=== PATIENT | female | born 1950 | race Caucasian/White ===

== ENCOUNTER 2016-12-06 09:36 | Inpatient (IN) | payer OTHER, BC ==
--- NOTE | 2016-11-09 15:41 | PAT Medication Instructions ---
Service Date Nov 09, 2016. Current Home Medication List Alprazolam (Xanax), 0.25 MG PO HS Bupropion (Wellbutrin Sr), 150 MG PO QAM Celecoxib (CeleBREX), 200 MG PO QAM Fesoterodine Fumarate (Toviaz), 1 TAB PO QAM Furosemide (Lasix), 20 MG PO QAM Levothyroxine Sodium (Synthroid), 100 MCG PO QAM Metoprolol Succ (Toprol Xl) (Toprol-Xl), 50 MG PO BID Potassium Chloride (Micro-K Ext Rel), 10 MEQ PO QAM Medication Instructions For Your Scheduled Surgery - Check with surgeon for instructions: Celecoxib (CeleBREX), 200 MG PO QAM - Hold the following medications the morning of surgery: Potassium Chloride (Micro-K Ext Rel), 10 MEQ PO QAM Furosemide (Lasix), 20 MG PO QAM Fesoterodine Fumarate (Toviaz), 1 TAB PO QAM - Take the following medications the morning of surgery with a sip of water: Bupropion (Wellbutrin Sr), 150 MG PO QAM Levothyroxine Sodium (Synthroid), 100 MCG PO QAM Metoprolol Succ (Toprol Xl) (Toprol-Xl), 50 MG PO BID - Take the following medications as scheduled the night before surgery: Metoprolol Succ (Toprol Xl) (Toprol-Xl), 50 MG PO BID Alprazolam (Xanax), 0.25 MG PO HS If you have any questions please call us at [phone] or [phone] or [phone]
[2016-11-09 16:35] LABS: BASO % 0.6 %; BASO ABS # 0.05 K/uL (0-0.2); COMPLETE YES; HEMATOCRIT 40.1 % (37-47); IG% 0.5 %; LYMPH % 35.7 %; LYMPH ABS # 2.83 K/uL (1.2-3.4); MEAN CELL VOLUME 87.6 fL (80-100); MEAN CORPUSCULAR HEMOGLOBIN 29.9 pg (25-34); MEAN CORPUSCULAR HGB CONC 34.2 g/dl (32-36); MEAN PLATELET VOLUME 10.7 fL (7.4-10.4); MONO % 6.8 %; NEUT % 54.4 %; PLATELET COUNT 302 K/uL (130-400); RED BLOOD COUNT 4.58 M/uL (4.2-5.4); WHITE BLOOD COUNT 7.92 K/uL (4.8-10.8)
--- NOTE | 2016-11-09 16:40 | DIAGNOSTIC IMAGING REPORT ---
TWO VIEW CHEST CLINICAL HISTORY: Preoperative examination. FINDINGS: PA and lateral chest radiographs are obtained. No prior studies are available for comparison at the time of dictation. The cardiomediastinal silhouette is unremarkable. Nonspecific interstitial thickening is observed. Linear atelectasis versus scarring is present the left lung base. There is no airspace consolidation or pleural effusion. There is no pneumothorax. The skeletal structures are osteopenic. Degenerative change and scoliosis are noted in the thoracic spine. IMPRESSION: No active disease in the chest. Electronically signed by: Stephen Quinones M.D. 11/09/2016 4:39 PM Dictated Date/Time: 11/09/2016 4:38 PM
[2016-11-09 16:42] LABS: MANUAL MICROSCOPIC REQUIRED? NO; REVIEW REQ? NO; URINE APPEARANCE CLEAR (CLEAR); URINE BILIRUBIN NEG (NEG); URINE COLOR YELLOW; URINE NITRITE NEG (NEG); URINE SPECIFIC GRAVITY 1.023 (1.000-1.030); UROBILINOGEN NEG (NEG); ZZUR CULT IF INDIC CLEAN CATCH NO
[2016-11-09 16:46] LABS: BUN/CREATININE RATIO 37.3 (10-20); CALCIUM 9.3 mg/dl (8.5-10.1); CREATININE 0.83 mg/dl (0.60-1.20); POTASSIUM 4.2 mmol/L (3.5-5.1)
[2016-11-09 17:02] LABS: INR 0.9 (0.9-1.1)
[2016-11-10 06:58] LABS: ESTIMATED AVERAGE GLUCOSE 120 mg/dl; HA1C FLAG Normal (Normal)
--- NOTE | 2016-12-05 15:40 | HISTORY & PHYSICAL EXAMINATION ---
DATE OF ADMISSION: 12/06/2016 CHIEF COMPLAINT: Chronic right shoulder pain. HISTORY OF PRESENT ILLNESS: This is a 66-year-old female patient of Dr. Chan, complaining of chronic right shoulder pain, longstanding, now progressively getting worse. The patient has been diagnosed with end-stage osteoarthritis with rotator cuff insufficiency. She wishes to proceed with a right reversed total shoulder arthroplasty. PAST MEDICAL HISTORY: Hypertension, hypercholesterolemia, neuropathy of her feet and hands, hypothyroidism, osteoarthritis, hiatal hernia, and obesity. SOCIAL HISTORY: Nonsmoker and nondrinker. FAMILY HISTORY: Noncontributory. PAST SURGICAL HISTORY: Hip replacement and hysterectomy. MEDICATIONS: Metoprolol 50 mg b.i.d., Wellbutrin 150 mg daily, Lasix 20 mg daily, Synthroid 100 mcg daily, potassium 100 mcg daily, Xanax 0.25 mg at bedtime, Celebrex 200 mg daily, and tovias 8mg daily. ALLERGIES: No known drug allergies. PHYSICAL EXAMINATION: GENERAL: Well-developed and well-nourished 66-year-old female of Dr. Chan, complaining of chronic right shoulder pain, longstanding, now progressively getting worse. HEENT: Normocephalic and atraumatic. Extraocular motions are intact. Pupils are equal and reactive to light. HEART: Regular rate and rhythm. No murmurs are appreciated. LUNGS: Clear. ABDOMEN: Soft and nontender. Bowel sounds are present. EXTREMITIES: Right shoulder reveals external rotation of 3/5 strength and internal rotation 4/5 strength. She has 90 degrees of active range of motion. She has 110 degrees of passive range of motion. She has crepitation with passive range of motion. NEUROLOGIC: Neurovascularly, she is intact in her right upper extremity. DIAGNOSES: Right shoulder end-stage osteoarthritis with a history of hypertension, hypercholesterolemia, neuropathy of her feet and hands, hypothyroidism, osteoarthritis, hiatal hernia, and obesity. PLAN: The patient was advised of her diagnosis. Indications, risks, benefits, and postop course have all been reviewed. The patient wishes to proceed with a right reversed total shoulder arthroplasty. Necessary consent forms, preoperative testing and clearances will be obtained. [facility]
[~2016-12-06] VITALS: Ht 157.5 cm; Wt 72.6 kg
[2016-12-06] VITALS (10 sets, daily range): BP systolic 126–146; BP diastolic 77–86; PULSE 65–77; TEMP 36.5–36.9; O2SAT 92–99; Ht 157.5 cm; Wt 72.6 kg
[~2016-12-06 09:36] MED LIST: ACETAMINOPHEN 500 MG TAB PO SCH; ALPR-411 PO; BUPR-79 PO; CLB/200 PO; CeleBREX 200 MG CAP PO SCH; DEXAMETHASONE 4 MG TAB PO SCH; DULO60CA44 PO; FAMOTIDINE 20 MG TAB PO SCH; FESO8TAB PO; FURO-85 PO; GABAPENTIN 300 MG CAP PO SCH; LACTATED RINGER'S 1000ML 1,000 ML IV SCH; LEVO100T PO; METO50TA7 PO; METOCLOPRAMIDE HCL 10 MG TAB PO SCH; POTA10CA28 PO; ROPIVACAINE 0.5% 5 MG/ML 30 ML VIAL ONE
--- NOTE | 2016-12-06 10:50 | History & Physical Bridge Note ---
H&P Re-Evaluation Bridge Note: I have examined the patient, reviewed the History & Physical and in the interval since the performance of the History & Physical I have noted the following changes of clinical significance: No changes noted
[2016-12-06] MEDS ORDERED: MIDAZOLAM HCL 1 MG/ML 2ML VIAL ONE ×3 (11:06→11:45)
[2016-12-06] MEDS ORDERED: FENTANYL CITRATE INJ 50 MCG/1 ML 2 ML VIAL ONE ×3 (11:07→13:10)
[2016-12-06] MEDS: CEFAZOLIN 1000MG/55 ML D5W 55 ML IV SCH ×2 (11:11→13:09)
[2016-12-06] MEDS ORDERED: DEXAMETHASONE SOD INJ 4 MG/ML VIAL ONE (11:12)
[2016-12-06] MEDS ORDERED: PROPOFOL IV EMULSION 10 MG/ML 20 ML VIAL IV ONE (11:12)
[2016-12-06] MEDS ORDERED: GLYCOPYRROLATE INJ 0.2 MG/ML VIAL ONE (11:12)
[2016-12-06] MEDS ORDERED: ROCURONIUM BROMIDE 10 MG/ML 5 ML VIAL IV ONE (11:12)
[2016-12-06] MEDS ORDERED: ONDANSETRON INJ 2 MG/ML 2 ML VIAL ONE (11:12)
[2016-12-06] MEDS ORDERED: NEOSTIGMINE METHYLSULFATE 5 MG/5 ML SYR ONE (11:12)
[2016-12-06] MEDS ORDERED: LIDOCAINE HCL 2% 2 ML VIAL (20MG/ML) ONE (11:12)
[2016-12-06] MEDS ORDERED: NURSING VERBAL MED ORDER ONE (11:15)
[2016-12-06] MEDS ORDERED: METOPROLOL SUCC 50MG EXT REL TAB PO SCH (11:30)
[2016-12-06] MEDS ORDERED: BACITRACIN 50000 UNIT VIAL ONE (11:55)
[2016-12-06] MEDS ORDERED: SOD PHOSPHATE/SOD BIPHOSPHATE ENEMA 132 ML BTL PR PRN (16:15)
[2016-12-06] MEDS ORDERED: NALOXONE HCL 0.4 MG/1 ML VIAL/CARP IV PRN (16:15)
[2016-12-06] MEDS ORDERED: BISACODYL 10 MG SUPP PR PRN (16:15)
[2016-12-06] MEDS ORDERED: ZOLPIDEM TARTRATE 5 MG TAB PO PRN (16:15)
[2016-12-06] MEDS ORDERED: MAGNESIUM HYDROXIDE SUSP 30 ML UDC PO PRN (16:15)
[2016-12-06] MEDS ORDERED: MoRPHine SULFATE 2 MG/ML CARP IV PRN (16:15)
--- NOTE | 2016-12-06 16:37 | Anesthesiology Progress Note ---
Anesthesia Post Op Note Date & Time Dec 06, 2016 at 16:37 Vital Signs Pain Intensity: 0 Vital Signs Past 12 Hours Date Time Temp Pulse Resp B/P (MAP) Pulse Ox O2 Delivery O2 Flow Rate FiO2 12/06/16 16:25 66 18 143/79 98 Oxymask 5 12/06/16 16:15 69 16 121/81 99 Oxymask 10 12/06/16 16:05 36.6 68 16 149/81 99 Oxymask 10 12/06/16 10:38 36.7 65 20 138/85 12/06/16 10:25 99 Room Air Notes Mental Status: alert / awake / arousable, participated in evaluation Pt Amnestic to Procedure: Yes Nausea / Vomiting: adequately controlled Pain: adequately controlled Airway Patency, RR, SpO2: stable & adequate BP & HR: stable & adequate Hydration State: stable & adequate Anesthetic Complications: no major complications apparent
--- NOTE | 2016-12-06 16:51 | DIAGNOSTIC IMAGING REPORT ---
R SHOULDER MIN 2 VIEWS ROUTINE HISTORY: 66 years-old Female Post shoulder surgery status post right shoulder arthroplasty COMPARISON: Chest radiograph 11/09/2016 TECHNIQUE: 2 views of the right shoulder FINDINGS: Postoperative changes compatible with recent reverse right shoulder arthroplasty are present with surgical drain and skin bee in place. Expected postsurgical swelling and deep tissue air is noted about the right shoulder. The bones are mildly demineralized. Alignment is satisfactory. No retained opaque foreign body identified. Imaged lung muñoz are hypoinflated. Degenerative changes are seen about the right AC joint. IMPRESSION: Status post reverse total joint arthroplasty of the right shoulder without postoperative complication identified. The above report was generated using voice recognition software. It may contain grammatical, syntax or spelling errors. Electronically signed by: Roverto Estevez M.D. 12/06/2016 4:50 PM Dictated Date/Time: 12/06/2016 4:49 PM
[2016-12-06] MEDS ORDERED: MoRPHine SULFATE 4 MG/ML 1 ML CARP\\VIAL IV PRN (17:15)
[2016-12-06] MEDS: D5W AND 1/2NSS + 20MEQ KCL 1,000 ML IV SCH (17:37)
--- NOTE | 2016-12-06 21:10 | OPERATIVE REPORT ---
DATE OF OPERATION: 12/06/2016 INDICATION FOR PROCEDURE: The patient is a 66-year-old female with right shoulder pain and disability. The patient was worked up due to chronic pain and dysfunction of her right shoulder. She has an MRI demonstrating a massive retracted rotator cuff tear which has atrophy of the supraspinatus and infraspinatus and felt to have nonrepairable tissue. She also has some DJD developing in the glenohumeral joint with an inferior humeral osteophyte and degenerative changes, not completely [id number] but signs of rotator cuff arthropathy. Because of the pain, disability and failed conservative management, she presents for reverse shoulder replacement at this time. PREOPERATIVE DIAGNOSIS: Osteoarthritis glenohumeral joint due to rotator cuff arthropathy with chronic nonrepairable rotator cuff tear, right shoulder. POSTOPERATIVE DIAGNOSIS: Same including significant biceps tendinopathy. PROCEDURE: Reverse right total shoulder arthroplasty including biceps tenodesis. SURGEON: Dr. Chan. REHEAT FURNACE OPERATOR: Canelo Ferraro PA-C. ANESTHESIA: Regional block and general. OPERATIVE PROCEDURE: The patient was taken to the operating room, anesthetized with regional block with general anesthetic. She was positioned on operating room table in about 30-degree beach chair position. She had a towel roll placed under medial border of the right scapula. She was translated to right side of the bed so her shoulder could be manipulated off the bed as necessary. She had foam headrest placed, protective eyewear placed. She had SCDs placed. Her right shoulder was examined under anesthesia. She had passive 150 degrees of forward elevation, 110 degrees of abduction, 30 degrees of external rotation only, and crepitation and instability of her shoulder anteriorly with some superior-anterior escape. After the shoulder was sterilely prepped and draped with ChloraPrep, an anterior deltopectoral approach was performed. Skin was incised sharply. Subcutaneous flaps were elevated. The cephalic vein was dissected out and retracted laterally with the deltoid, the pectoralis was retracted medially. The upper centimeter of the pectoralis was released for inferior exposure. Biceps tendon sheath was opened up and there was chronic biceps tenosynovitis coming from the shoulder joint. When the biceps entered the bicipital groove, there was a very stenotic bicipital groove. The biceps tendon was then tenodesed to the pectoralis tendon with a [id number] #2 Fiberwire sutures and the proximal biceps resected. There was thickened, scarred bursa tissue enveloping the entire subscapularis, this was removed. We released this clavipectoral fascia also on the lateral aspect of the conjoined tendon and extended this up to the CA ligament which was left intact. There was some tendinopathic supraspinatus tendon tissue in the rotator interval area but had a chronically torn supraspinatus and infraspinatus tendon and intact teres minor tendon. The thickened bursa superiorly and posteriorly around the rotator cuff was all resected. At this time, the circumflex vessels were identified, tied off with silk ties and divided laterally. The muscle fibers of the subscapularis were split at the level of the circumflex vessels and reflected off the inferior capsule with a Kitner elevator. There was a bit of scar tissue adhering to some of these fibers, we carefully dissected down to identify the axillary nerve which we identified with both tug test followed by direct visualization. Then, we placed the blunt Hohmann retractor between the capsule and the axillary nerve itself to protect it inferiorly. Then, the rotator interval was divided down to the anterior glenoid and then the subscapularis and capsule released off the humerus with electrocautery dissection, doing a subperiosteal dissection, releasing the tissue off the lesser tuberosity and then the neck of the humerus and then inferiorly along the neck and we used a Rosado elevator to release the capsule as well along the neck, so we had a complete release around the inferior neck. I placed a #1 Vicryl traction suture in the subscapularis tendon. Then, I retracted the humerus posterior to the glenoid with a Fukuda retractor. Then, we did the capsular release with Tomlin scissors down to the glenoid. The capsule was released off the anterior labrum and then the rotator was released down to that and the coracohumeral ligament was released. Then, the Bankart retractor was placed anteriorly. The glenoid labrum was resected circumferentially and the remainder of the thickened, widened biceps tendon was resected off the superior glenoid. Some of the damaged supraspinatus tendinopathic tissue was resected. The glenoid had full exposure. Intraarticular findings demonstrated that the anterior-superior glenoid had exposed bone, the remainder of glenoid had articular cartilage intact. The inferior humeral head was exposed bone and there were inferior osteophytes around the humeral head. These were all removed with an artist chisel and a rongeur. Then, I did an anterior-inferior and posterior-inferior capsule release using both electrocautery on bone and a Rosado elevator to release the capsule and triceps. The axillary nerve was protected the entire time with the blunt Hohmann retractor inferiorly. Then, the humerus was exposed with extension and external rotation. The cutting guide for the Tornier reverse total shoulder arthroplasty system using the Ascend Flex humeral components and the Aequalis glenoid components was utilized. The cutting guide for the stem was placed, we set the guide at 20 degrees of retroversion, made our cut, and then went ahead and retracted the humerus posterior to the glenoid and then curetted the articular cartilage off the glenoid so that we could get the true version of the glenoid. Then, I placed a 10-degree inferior tilt on the guide for the 25 mm baseplate. We drilled the central hole, followed by the reamer for the baseplate, followed by widening of central hole, followed by copious irrigation and then impacting in the 25 mm hydroxyapatite-coated glenoid baseplate. It was transfixed with 18 and 26 mm compression screws and 26 and 23 mm locking screws. There was excellent fixation of the patient's hard bone. Then, we went ahead and reamed the fan reamer around for the 36 mm glenoid sphere and irrigated out all the debris and then placed the glenoid sphere in place, impacted in position and tightened the screw tightly, verified the stability of the glenoid sphere, then proceeded to the humeral preparation. The humerus was prepared with the starter awl, followed by broaches up to a 2B long stem and trial reduction with high offset +0 humeral tray and a 36, +6 insert gave a stable range of motion through full range of motion. There was a tight fit with that, we could not go to a larger size. This was removed with the use of a bone hook and then we were able to remove the trials and then went ahead and placed 3 drill holes through the hard bone in the bicipital groove area and then placed 3 transosseous #5 FiberWire sutures. Irrigated out the canal. Then assembled the final component which was the 2B long stem to the +0 high offset humeral baseplate, followed by the 36 x 6 mm polyethylene insert. The Aequalis humeral component was then impacted into the humeral canal with a tight pressfit. Then, we reduced this to the glenoid sphere, then repaired the subscapularis with the #5 FiberWire sutures using Davide-Rhett suture technique. The pectoralis was repaired with [id number] #2 FiberWire. Then, we checked range of motion which was 160 degrees of forward elevation passively, 45 degrees of external rotation and 120 degrees of abduction without any tension on the repair. The wound was copiously irrigated with pulsatile lavage antibiotic solution and bacitracin. Two drains were brought out laterally and placed into the joint, deep to the deltoid pectoralis interval and then the deltopectoral interval was repaired with [id number] #1 Vicryl sutures. The subcutaneous tissue was closed with interrupted 2-0 Vicryl, skin closed with bee. Sterile dressing was applied and a sling immobilizer. The patient tolerated the procedure well. Canelo Ferraro PA-C, was my heel sprayer first and functioned as heel sprayer first through the entire procedure. He assisted in patient positioning, prepping and draping, arm positioning, soft tissue retraction, instrument management during the procedure, and performed the subcutaneous and skin closure, and will participate in the postoperative care of the patient. I attest to the content of the Intraoperative Record and any orders documented therein. Any exception s are noted below.
[2016-12-06] MEDS: OXYCODONE HCL 10 MG TABCR (OXYCONTIN) PO SCH (21:18)
[2016-12-06] MEDS: DOCUSATE SODIUM 100 MG CAP PO SCH (21:19)
[2016-12-06] MEDS: METOPROLOL SUCC 50MG EXT REL TAB PO SCH (21:19)
[2016-12-06] MEDS: ALPRAZOLAM 0.5 MG TAB PO SCH (22:17)
[2016-12-06] MEDS: ACETAMINOPHEN 500 MG TAB PO SCH (22:18)
[2016-12-06] MEDS: CEFAZOLIN IV 1,000 MG in DEXTROSE 5% 50ML 50 ML IV SCH (22:22)
[2016-12-07 03:15] VITALS: BP 102/74; PULSE 87; TEMP 36.6; O2SAT 94
[2016-12-07] MEDS: D5W AND 1/2NSS + 20MEQ KCL 1,000 ML IV SCH ×2 (03:46→12:46)
[2016-12-07] MEDS: LEVOTHYROXINE 100 MCG TAB PO SCH (05:38)
[2016-12-07] MEDS: ACETAMINOPHEN 500 MG TAB PO SCH ×3 (05:38→21:34)
[2016-12-07] MEDS: CEFAZOLIN IV 1,000 MG in DEXTROSE 5% 50ML 50 ML IV SCH (05:41)
[2016-12-07 05:50] LABS: HEMATOCRIT 33.3 % (37-47); MEAN CELL VOLUME 88.3 fL (80-100); MEAN CORPUSCULAR HEMOGLOBIN 29.4 pg (25-34); MEAN CORPUSCULAR HGB CONC 33.3 g/dl (32-36); MEAN PLATELET VOLUME 10.1 fL (7.4-10.4); PLATELET COUNT 231 K/uL (130-400); RED BLOOD COUNT 3.77 M/uL (4.2-5.4); WHITE BLOOD COUNT 9.68 K/uL (4.8-10.8)
[2016-12-07 06:23] LABS: BUN/CREATININE RATIO 16.6 (10-20); CALCIUM 8.5 mg/dl (8.5-10.1); CREATININE 0.78 mg/dl (0.60-1.20); POTASSIUM 4.5 mmol/L (3.5-5.1)
[2016-12-07 07:05] VITALS: BP 110/71; PULSE 80; TEMP 36.5; O2SAT 94
--- NOTE | 2016-12-07 07:54 | Orthopedic Progress Note ---
Orthopedic Progress Note Date of Service Dec 07, 2016. Subjective Post OP Day: 1 Reports: feeling well, pain controlled w PO medications, Denies: complaints, chest pain, SOB, nausea / vomiting, light headedness, calf pain Objective N/V intact, capillary refill less than 2 sec., dressing C/D/I, A&O x3 Sling in tact, fingers mobile. Date Time Temp Pulse Resp B/P (MAP) Pulse Ox O2 Delivery O2 Flow Rate FiO2 12/07/16 07:05 36.5 80 16 110/71 (84) 94 Room Air 12/07/16 03:15 36.6 87 18 102/74 (83) 94 Room Air 12/06/16 23:21 36.6 77 18 146/86 (106) 93 Room Air 12/06/16 23:20 Room Air 12/06/16 21:15 76 144/77 (99) 12/06/16 19:50 36.8 76 16 138/81 (100) 94 Room Air 12/06/16 18:45 36.9 71 18 133/80 (97) 92 Room Air 12/06/16 17:50 36.5 68 18 131/78 (95) 98 Nasal Cannula 2.0 12/06/16 17:20 36.6 66 16 130/84 (99) 98 Nasal Cannula 3.0 12/06/16 16:58 98 Nasal Cannula 2.0 12/06/16 16:50 36.7 70 16 126/81 (96) 98 Nasal Cannula 2.0 12/06/16 16:50 Nasal Cannula 2.0 12/06/16 16:44 69 18 142/76 96 Nasal Cannula 2 12/06/16 16:35 36.8 69 18 142/81 96 Nasal Cannula 2 12/06/16 16:25 66 18 143/79 98 Oxymask 5 12/06/16 16:15 69 16 121/81 99 Oxymask 10 12/06/16 16:05 36.6 68 16 149/81 99 Oxymask 10 12/06/16 10:38 36.7 65 20 138/85 12/06/16 10:25 99 Room Air Laboratory Results 24 Hours: Test 12/07/16 05:19 Hematocrit 33.3 % Hemoglobin 11.1 g/dL Assessment & Plan Assessment: POD #1, Right reversed TSA, Biceps tenodesis Plan: Limited PT/ OT D/C planning- Home As per medicine. Inhouse Planning Pain Management: Oxycontin, Morphine, PO Tylenol, Oxy IR DVT Prophylaxis: TEDs, SCDs Discharge Planning Discharge Planning: home
[2016-12-07] MEDS: OXYCODONE HCL IR 5 MG TAB (IMMEDIATE RELEASE) PO PRN ×2 (07:58→19:09)
[2016-12-07] MEDS: OXYCODONE HCL 10 MG TABCR (OXYCONTIN) PO SCH ×2 (09:07→21:34)
[2016-12-07] MEDS: DOCUSATE SODIUM 100 MG CAP PO SCH ×2 (09:07→21:34)
[2016-12-07] MEDS: DULOXETINE HCL 60 MG CAP PO SCH (09:07)
[2016-12-07] MEDS: MULTIVITAMIN TAB PO SCH (09:08)
[2016-12-07] MEDS: FUROSEMIDE 20 MG TAB PO SCH (09:08)
[2016-12-07] MEDS: POTASSIUM CHLORIDE 10 MEQ TABCR PO SCH (09:08)
[2016-12-07] MEDS: PANTOprazole SOD 40 MG TAB PO SCH (09:08)
[2016-12-07] MEDS: BuPROPion SR 150 MG TABCR PO SCH (09:09)
[2016-12-07] MEDS: METOPROLOL SUCC 50MG EXT REL TAB PO SCH ×2 (09:09→21:00)
--- NOTE | 2016-12-07 09:59 | Anesthesiology Progress Note ---
Anesthesia Post Op Note Date & Time Dec 07, 2016 at 09:58 Vital Signs Vital Signs Past 12 Hours Date Time Temp Pulse Resp B/P (MAP) Pulse Ox O2 Delivery O2 Flow Rate FiO2 12/07/16 07:30 Room Air 12/07/16 07:05 36.5 80 16 110/71 (84) 94 Room Air 12/07/16 03:15 36.6 87 18 102/74 (83) 94 Room Air 12/06/16 23:21 36.6 77 18 146/86 (106) 93 Room Air 12/06/16 23:20 Room Air Notes Mental Status: alert / awake / arousable, participated in evaluation Pt Amnestic to Procedure: Yes Nausea / Vomiting: adequately controlled Pain: adequately controlled Airway Patency, RR, SpO2: stable & adequate BP & HR: stable & adequate Hydration State: stable & adequate Anesthetic Complications: no major complications apparent
[2016-12-07 12:05] VITALS: BP 108/72; PULSE 71; TEMP 36.6; O2SAT 96
[2016-12-07 15:02] VITALS: BP 111/68; PULSE 64; TEMP 36.5; O2SAT 97
--- NOTE | 2016-12-07 15:34 | Progress Note ---
Subjective Date of Service: Dec 07, 2016. Subjective Pt evaluation today including: conversation w/ patient, physical exam, lab review, review of inpatient medication list Pain: right shoulder, moderate PO Intake: adequate Voiding: no voiding problems patient doing well, main issue is pain control eating well, no chest pain, breathing well ambulating in hallway labs reviewed, normal vitals stable Review of Systems Musculoskeletal: + joint pain (right shoulder) All Other Systems: Reviewed and Negative Medications Current Inpatient Medications Medications (Trade) Dose Ordered Sig/Drew Route Start Time Stop Time Status Last Admin Dose Admin Alprazolam (Xanax Tab) 0.25 mg HS PO 12/06/16 21:00 01/05/17 20:59 12/06/16 22:17 0.25 MG Bupropion HCl (Wellbutrin-Sr Tab) 150 mg QAM PO 12/07/16 09:00 01/06/17 08:59 12/07/16 09:09 150 MG Duloxetine HCl (Cymbalta Cap) 60 mg DAILY PO 12/07/16 09:00 01/06/17 08:59 12/07/16 09:07 60 MG Furosemide (Lasix Tab) 20 mg QAM PO 12/07/16 09:00 01/06/17 08:59 12/07/16 09:08 20 MG Levothyroxine Sodium (Synthroid Tab) 100 mcg DAILYBB PO 12/07/16 06:00 01/06/17 05:59 12/07/16 05:38 100 MCG Metoprolol Succinate (Toprol Xl Tab) 50 mg BID PO 12/06/16 21:00 01/05/17 20:59 12/07/16 09:09 50 MG Potassium Chloride (Klor-Con M10) 10 meq QAM PO 12/07/16 09:00 01/06/17 08:59 12/07/16 09:08 10 MEQ Miscellaneous Information (Order Awaiting Action) 1 ea QS N/A 12/06/16 16:00 01/05/17 15:59 Diphenhydramine HCl (Benadryl Cap) 25 mg Q8 PRN PO 12/06/16 16:15 01/05/17 16:14 Zolpidem Tartrate (Ambien Tab) 5 mg HSZ PRN PO 12/06/16 16:15 01/05/17 16:14 Ondansetron HCl (Zofran Inj) 4 mg Q6H PRN IV 12/06/16 16:15 01/05/17 16:14 Pantoprazole Sodium (Protonix Tab) 40 mg QAM PO 12/07/16 09:00 01/06/17 08:59 12/07/16 09:08 40 MG Oxycodone HCl (Roxicodone Immediate Rel Tab) `1-2 TABS FOR PAIN `1 TAB... Q4H PRN PO 12/06/16 16:15 12/20/16 16:14 12/07/16 07:58 5 MG Oxycodone HCl (Oxycontin Tab) 10 mg Q12 PO 12/06/16 21:00 12/20/16 20:59 12/07/16 09:07 10 MG Acetaminophen (Tylenol Tab) 1,000 mg Q8 PO 12/06/16 22:00 01/05/17 21:59 12/07/16 14:24 1,000 MG Morphine Sulfate (MoRPHine SULFATE INJ) 2 mg Q2H PRN IV 12/06/16 16:15 12/20/16 16:14 Naloxone HCl (Narcan Inj) 0.1 mg Q2M PRN IV 12/06/16 16:15 01/05/17 16:14 Magnesium Hydroxide (Milk Of Magnesia Susp) 30 ml Q6H PRN PO 12/06/16 16:15 01/05/17 16:14 Bisacodyl (Dulcolax Supp) 10 mg DAILY PRN [place] 12/06/16 16:15 01/05/17 16:14 Sodium Biphosphate/ Sodium Phosphate (Fleet Enema) 132 ml DAILY PRN [place] 12/06/16 16:15 01/05/17 16:14 Docusate Sodium (coLACE CAP) 100 mg BID PO 12/06/16 21:00 01/05/17 20:59 12/07/16 09:07 100 MG Multivitamins (Multivitamin Tab) 1 tab DAILY PO 12/07/16 09:00 01/06/17 08:59 12/07/16 09:08 1 TAB Morphine Sulfate (MoRPHine SULFATE INJ) 4 mg Q2H PRN IV 12/06/16 17:15 12/20/16 17:14 Objective Vital Signs Date Time Temp Pulse Resp B/P (MAP) Pulse Ox O2 Delivery O2 Flow Rate FiO2 12/07/16 15:02 36.5 64 16 111/68 (82) 97 Room Air 12/07/16 12:05 36.6 71 16 108/72 (84) 96 Room Air 12/07/16 07:30 Room Air 12/07/16 07:05 36.5 80 16 110/71 (84) 94 Room Air 12/07/16 03:15 36.6 87 18 102/74 (83) 94 Room Air 12/06/16 23:21 36.6 77 18 146/86 (106) 93 Room Air 12/06/16 23:20 Room Air 12/06/16 21:15 76 144/77 (99) 12/06/16 19:50 36.8 76 16 138/81 (100) 94 Room Air 12/06/16 18:45 36.9 71 18 133/80 (97) 92 Room Air 12/06/16 17:50 36.5 68 18 131/78 (95) 98 Nasal Cannula 2.0 12/06/16 17:20 36.6 66 16 130/84 (99) 98 Nasal Cannula 3.0 12/06/16 16:58 98 Nasal Cannula 2.0 12/06/16 16:50 36.7 70 16 126/81 (96) 98 Nasal Cannula 2.0 12/06/16 16:50 Nasal Cannula 2.0 12/06/16 16:44 69 18 142/76 96 Nasal Cannula 2 12/06/16 16:35 36.8 69 18 142/81 96 Nasal Cannula 2 12/06/16 16:25 66 18 143/79 98 Oxymask 5 12/06/16 16:15 69 16 121/81 99 Oxymask 10 12/06/16 16:05 36.6 68 16 149/81 99 Oxymask 10 Physical Exam General Appearance: WD/WN, no apparent distress Neck: supple, no adenopathy, no JVD, trachea midline Respiratory/Chest: chest non-tender, lungs clear, normal breath sounds, no respiratory distress, no accessory muscle use Cardiovascular: regular rate, rhythm, no edema, no gallop, no JVD, no murmur Abdomen: normal bowel sounds, non tender, soft, no organomegaly Extremities: no pedal edema, no calf tenderness, pelvis stable, + pertinent finding (right shoulder in sling, immobilized, tender, drain with serosanguinous ) Neurologic/Psychiatric: lapeler II-XII nml as tested, no motor/sensory deficits, alert, normal mood/affect, oriented x 3 Skin: normal color, warm/dry, no rash Lymphatic: no adenopathy Laboratory Results Last 24 Hours Test 12/07/16 05:19 White Blood Count 9.68 K/uL Red Blood Count 3.77 M/uL Hemoglobin 11.1 g/dL Hematocrit 33.3 % Mean Corpuscular Volume 88.3 fL Mean Corpuscular Hemoglobin 29.4 pg Mean Corpuscular Hemoglobin Concent 33.3 g/dl RDW Standard Deviation 42.3 fL RDW Coefficient of Variation 13.1 % Platelet Count 231 K/uL Mean Platelet Volume 10.1 fL Sodium Level 142 mmol/L Potassium Level 4.5 mmol/L Chloride Level 109 mmol/L Carbon Dioxide Level 23 mmol/L Anion Gap 10.0 mmol/L Blood Urea Nitrogen 13 mg/dl Creatinine 0.78 mg/dl Est Creatinine Clear Calc Drug Dose 67.1 ml/min Estimated GFR () 92.5 Estimated GFR (Non- 79.8 BUN/Creatinine Ratio 16.6 Random Glucose 184 mg/dl Calcium Level 8.5 mg/dl Hepatitis C Antibody Screen NEG Assessment and Plan 66 yo female s/p right reverse total shoulder arthroplasty - R reverse TSA: POD 1, doing well, pain controlled moderately well eating well, stop fluids labs reviewed, normal d/c per primary team - HTN: BP stable, continue Metoprolol, Lasix - Hypothyroidism: Synthroid patient stable for discharge from medical perspective, will sign off, continue all prior home medications on discharge
[2016-12-07 21:30] VITALS: BP 112/75; PULSE 68
[2016-12-07] MEDS: ALPRAZOLAM 0.5 MG TAB PO SCH (21:34)
[2016-12-07 22:53] VITALS: BP 104/68; PULSE 65; TEMP 36.9; O2SAT 95
[2016-12-08] MEDS: OXYCODONE HCL IR 5 MG TAB (IMMEDIATE RELEASE) PO PRN ×2 (04:32→12:48)
[2016-12-08] MEDS: LEVOTHYROXINE 100 MCG TAB PO SCH (05:31)
[2016-12-08] MEDS: ACETAMINOPHEN 500 MG TAB PO SCH ×2 (05:31→14:13)
[2016-12-08 06:01] VITALS: BP 94/61; PULSE 67; TEMP 36.7; O2SAT 95
[2016-12-08 06:17] LABS: HEMATOCRIT 32.6 % (37-47); MEAN CELL VOLUME 90.3 fL (80-100); MEAN CORPUSCULAR HEMOGLOBIN 29.9 pg (25-34); MEAN CORPUSCULAR HGB CONC 33.1 g/dl (32-36); MEAN PLATELET VOLUME 10.2 fL (7.4-10.4); PLATELET COUNT 230 K/uL (130-400); RED BLOOD COUNT 3.61 M/uL (4.2-5.4); WHITE BLOOD COUNT 9.81 K/uL (4.8-10.8)
[2016-12-08 06:48] LABS: BUN/CREATININE RATIO 18.9 (10-20); CALCIUM 8.2 mg/dl (8.5-10.1); CREATININE 0.83 mg/dl (0.60-1.20); POTASSIUM 4.4 mmol/L (3.5-5.1)
--- NOTE | 2016-12-08 07:14 | Orthopedic Progress Note ---
Orthopedic Progress Note Date of Service Dec 08, 2016. Subjective Post OP Day: 2 Reports: feeling well, pain controlled w PO medications, Denies: complaints, chest pain, SOB, nausea / vomiting, light headedness, calf pain Objective calves soft nontender, N/V intact, capillary refill less than 2 sec., incision C /D/I, A&O x3, toes mobile Sling in tact, fingers mobile. Date Time Temp Pulse Resp B/P (MAP) Pulse Ox O2 Delivery O2 Flow Rate FiO2 12/08/16 06:01 36.7 67 16 94/61 (72) 95 Room Air 12/07/16 23:15 Room Air 12/07/16 22:53 36.9 65 18 104/68 (80) 95 Room Air 12/07/16 21:30 68 112/75 (87) 12/07/16 15:02 36.5 64 16 111/68 (82) 97 Room Air 12/07/16 15:00 Room Air 12/07/16 12:05 36.6 71 16 108/72 (84) 96 Room Air 12/07/16 07:30 Room Air Laboratory Results 24 Hours: Test 12/08/16 05:44 Hematocrit 32.6 % Hemoglobin 10.8 g/dL Assessment & Plan Assessment: POD #2, Right reversed TSA, Biceps tenodesis Plan: Limited PT/ OT D/C planning- Home today w HEP, No formal PT. As per medicine. Inhouse Planning Pain Management: Oxycontin, Morphine, PO Tylenol, Oxy IR DVT Prophylaxis: TEDs, SCDs Discharge Planning Discharge Planning: home
[2016-12-08] MEDS ORDERED: RXC5 PO (07:16)
[2016-12-08] MEDS ORDERED: ACET-24 PO (07:16)
[2016-12-08] MEDS ORDERED: OXYSR10 PO (07:16)
[2016-12-08] MEDS: BuPROPion SR 150 MG TABCR PO SCH (07:17)
[2016-12-08] MEDS: PANTOprazole SOD 40 MG TAB PO SCH (07:17)
[2016-12-08] MEDS: MULTIVITAMIN TAB PO SCH (07:17)
[2016-12-08] MEDS: DULOXETINE HCL 60 MG CAP PO SCH (07:17)
--- NOTE | 2016-12-08 07:17 | Discharge Instructions ---
Discharge Instructions Date of Service Dec 08, 2016. Admission Reason for Admission: Right Shoulder Rotator Cuff Arthropathy Discharge Discharge Diagnosis / Problem: Right Reversed TSA Discharge Goals Goal(s): Improve function Activity Recommendations Activity Limitations: as noted below . Instructions / Follow-Up Instructions / Follow-Up ACTIVITY RECOMMENDATIONS: SELF CARE INSTRUCTIONS AFTER TOTAL SHOULDER ARTHROPLASTY REVERSE A. You may do daily exercises as taught in physical therapy while in hospital. No lifting with the operative arm. B. You are to wear your sling/immobilizer at all times EXCEPT when performing your daily exercises and for hygiene purposes. C. You may perform dry, daily dressing changes. Please keep your incision covered. You may shower 48 hours after surgery. Do not apply soap or any ointment/ lotions directly over incision. Do not soak incision in bath tub/swimming pool. D. You may use ice as needed to operative shoulder. SPECIAL CARE INSTRUCTIONS: VERY IMPORTANT TO READ AND REVIEW A. There are a few signs you need to watch for after you are home. Call [facility] at [phone] if you experience any of the followin. Increased severe shoulder pain. Some pain is expected especially when you exercise. 2. Increased swelling in you shoulder or arm; pain or swelling in either upper extremity. 3. Any fluid drainage from the incision. 4. Shortness of breath or chest pain. B. Please call [facility] at [phone] if you have any questions or concerns about your operation or recovery. C. Call your physician if: 1. Temperature is greater than 101 degrees (F). 2. Pain is not relieved by prescribed pain medications. 3. Increase drainage or redness from incision. 4. Unanswered questions or concerns. FOLLOW UP VISIT: Please call [facility] at [phone] to schedule a follow up appointment with Dr. Chan or his PA in 12-14 days from your surgery date. Current Hospital Diet Patient's current hospital diet: Regular Diet Discharge Diet Recommended Diet: Regular Diet Procedures Procedures Performed: Right Reversed Total Shoulder Arthroplasty Pending Studies Studies pending at discharge: no Laboratory Results Hemoglobin A1c Test 11/09/16 15:53 Range/Units Estimated Average Glucose 120 mg/dl Hemoglobin A1c 5.8 H 4.5-5.6 % Medical Emergencies . Who to Call and When: Medical Emergencies: If at any time you feel your situation is an emergency, please call 911 immediately. . Non-Emergent Contact Non-Emergency issues call your: Primary Care Provider . "Provider Documentation" section prepared by Canelo Ferraro. . VTE Core Measure Inpt VTE Proph given/why not?: [facility] [place] Drug Monitoring Program Search Results: patient reviewed within database, no issues identified
[2016-12-08] MEDS: POTASSIUM CHLORIDE 10 MEQ TABCR PO SCH (07:18)
[2016-12-08] MEDS: FUROSEMIDE 20 MG TAB PO SCH (07:18)
[2016-12-08 07:19] VITALS: BP 96/63; PULSE 71
[2016-12-08] MEDS: METOPROLOL SUCC 50MG EXT REL TAB PO SCH ×2 (07:20→20:43)
[2016-12-08] MEDS: ONDANSETRON INJ 2 MG/ML 2 ML VIAL IV PRN ×3 (07:48→23:55)
[2016-12-08] MEDS: DOCUSATE SODIUM 100 MG CAP PO SCH ×2 (09:00→20:39)
[2016-12-08 09:38] VITALS: BP 96/63; PULSE 71; TEMP 36.7; O2SAT 95
[2016-12-08] MEDS: OXYCODONE HCL 10 MG TABCR (OXYCONTIN) PO SCH (10:01)
[2016-12-08 15:10] VITALS: BP 113/73; PULSE 68; TEMP 36.5; O2SAT 95
[2016-12-08] MEDS ORDERED: ACETAMINOPHEN 325 MG TAB PO PRN (17:00)
[2016-12-08 20:38] VITALS: BP 98/67; PULSE 76
[2016-12-08] MEDS: ALPRAZOLAM 0.5 MG TAB PO SCH (20:42)
[2016-12-08] MEDS: HYDROCODONE/ACETAMOPHEN 5/325MG TAB PO PRN (20:52)
[2016-12-08 23:45] VITALS: BP 103/63; PULSE 84; TEMP 36.9; O2SAT 100
[2016-12-09] MEDS: LEVOTHYROXINE 100 MCG TAB PO SCH (05:05)
[2016-12-09] MEDS: HYDROCODONE/ACETAMOPHEN 5/325MG TAB PO PRN ×3 (05:05→14:08)
[2016-12-09 07:56] VITALS: BP 105/71; PULSE 75; TEMP 36.6; O2SAT 99
--- NOTE | 2016-12-09 08:16 | Orthopedic Progress Note ---
Orthopedic Progress Note Date of Service Dec 09, 2016. Subjective Post OP Day: 3 Reports: feeling well, Denies: chest pain, SOB, nausea / vomiting, light headedness, calf pain Additional Notes: Feeling better today, NV improved Objective calves soft nontender, N/V intact, capillary refill less than 2 sec., incision C /D/I, A&O x3 Date Time Temp Pulse Resp B/P (MAP) Pulse Ox O2 Delivery O2 Flow Rate FiO2 12/09/16 07:56 36.6 75 16 105/71 (82) 99 Room Air 12/09/16 07:25 Room Air 12/08/16 23:50 Room Air 12/08/16 23:45 36.9 84 18 103/63 (76) 100 Room Air 12/08/16 20:38 76 98/67 (77) 12/08/16 15:30 Room Air 12/08/16 15:10 36.5 68 16 113/73 (86) 95 Room Air 12/08/16 09:38 36.7 71 16 95 Room Air Assessment & Plan Assessment: POD #3, Right reversed TSA, Biceps tenodesis Plan: Limited PT/ OT D/C planning- Home today w HEP, No formal PT. As per medicine. Inhouse Planning Pain Management: Oxycontin, Morphine, PO Tylenol, Oxy IR DVT Prophylaxis: TEDs, SCDs Discharge Planning Discharge Planning: home
[2016-12-09] MEDS: DULOXETINE HCL 60 MG CAP PO SCH (09:05)
[2016-12-09] MEDS: POTASSIUM CHLORIDE 10 MEQ TABCR PO SCH (09:05)
[2016-12-09] MEDS: MULTIVITAMIN TAB PO SCH (09:05)
[2016-12-09] MEDS: METOPROLOL SUCC 50MG EXT REL TAB PO SCH (09:05)
[2016-12-09] MEDS: PANTOprazole SOD 40 MG TAB PO SCH (09:05)
[2016-12-09] MEDS: BuPROPion SR 150 MG TABCR PO SCH (09:06)
[2016-12-09] MEDS: DOCUSATE SODIUM 100 MG CAP PO SCH (09:06)
[2016-12-09] MEDS: FUROSEMIDE 20 MG TAB PO SCH (09:06)
== END 2016-12-09 14:25 | disposition home or self-care (01) | DRG 483 ==
LOC: C.ACU 09:36 → C.3E 10:48 → ENRESERV 16:34
PROVIDERS: ADMIT Orthopaedic Surgery Sports Medicine; ATTEND Orthopaedic Surgery Sports Medicine
PROC: 0LM10ZZ Reattachment of Right Shoulder Tendon, Open Approach (ICD-10-PCS; principal; 2016-12-06 12:00)
PROC: 0RRJ00Z Replacement of Right Shoulder Joint with Reverse Ball and Socket Synthetic Substitute, Open Approach (ICD-10-PCS; principal; 2016-12-06 12:00)
DX: M19.011 Primary osteoarthritis, right shoulder (principal); M75.101 Unspecified rotator cuff tear or rupture of right shoulder, not specified as traumatic; I10 Essential (primary) hypertension; E78.00 Pure hypercholesterolemia, unspecified; E03.9 Hypothyroidism, unspecified; E66.9 Obesity, unspecified; Z79.899 Other long term (current) drug therapy